=== PATIENT | male | born 1945 | race Caucasian/White ===

== ENCOUNTER → 2022-04-07 13:30 | Outpatient (CLI) | payer MEDICARE, OTHER, SELFPAY ==
--- NOTE | 2022-04-07 13:38 | XR_ITS ---
FINAL REPORT CLINICAL HISTORY: bunions..foot pain FINDINGS: RIGHT FOOT: Three views of the right foot were obtained. There is no acute fracture or dislocation. There is mild hallux valgus deformity. There are mild degenerative changes. There is soft tissue swelling medial to the 1st MTP joint and lateral to the 5th MTP joint. IMPRESSION: Degenerative changes and soft tissue swelling as above Reviewed, Interpreted and Dictated by Kar Stewart III, MD Transcribed by Elmer Lezama Authenticated and [facility]
== END ==
PROVIDERS: PCP Nurse Practitioner Family; Visit Provider Orthopaedic Surgery
DX: M21.611 Bunion of right foot (principal)
CPT/HCPCS: 73630